=== PATIENT | male | born 1960 | race Caucasian/White ===

== ENCOUNTER 2018-02-21 08:38 | Day surgery (SDC) | payer OTHER ==
[2018-02-21] MEDS ORDERED: PROPOFOL 20 ML ×2 (09:39→10:12)
== END 2018-02-21 12:40 | disposition home or self-care (01) ==
LOC: GIL 08:38
DX: Z12.11 Encounter for screening for malignant neoplasm of colon (principal); D12.0 Benign neoplasm of cecum
CPT/HCPCS: 45380; 88305